=== PATIENT | male | born 1980 | race Hispanic/Latino ===

== ENCOUNTER 2023-08-26 21:44 | Emergency (ER) | payer OTHER ==
[~2023-08-26] VITALS: Ht 167.6 cm; Wt 104.3 kg
[2023-08-26 21:46] VITALS: BP 139/89; PULSE 96; RESP 20
[2023-08-26] MEDS ORDERED: IBUPROFEN 800 MG TAB PO ONE (22:00)
== END 2023-08-26 22:23 | disposition left against medical advice (07) ==
LOC: EDH 21:44
DX: L98.9 Disorder of the skin and subcutaneous tissue, unspecified (principal); I10 Essential (primary) hypertension; E78.00 Pure hypercholesterolemia, unspecified; F31.9 Bipolar disorder, unspecified; Z88.8 Allergy status to other drugs, medicaments and biological substances